=== PATIENT | male | born 1980 | race American Indian/Alaskan Native ===

== ENCOUNTER 2016-08-27 14:09 | Emergency (ER) | payer OTHER ==
[2016-08-27 14:24] VITALS: TEMP 98.1; O2SAT 100
[2016-08-27 14:34] VITALS: BMI 27.8
[2016-08-27] MEDS ORDERED: Fosphenytoin 1,000 MG in Sodium Chloride 0.9% 50 ML IV STA (14:38)
--- NOTE | 2016-08-27 14:47 | ED PDOC ---
Arrival/HPI - General Time Seen by Provider: 08/27/16 14:19 Historian: Patient - History of Present Illness Narrative History of Present Illness (Text): 08/27/16 14:43 36 year old male whose past medical history includes seizure disorder, noncompliant with Dilantin, presents to the emergency department s/p seizure today. 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 He reports he began to feel left sided tingling which he states is his prodrome before a seizure. He states he then sat down and had a seizure. Patient states he left work and when he got home he had another generalized tonoclonic seizure. He reports that during this seizure he hit his head on the floor. Currently he reports mild headache. Patient reports last seizure was over a year ago. He states he has not followed up with his neurologist in over a year. Patient states this seizure could be due to lack of sleep from recent work schedule. Denies hx of alcohol withdrawal seizures. Denies regular alcohol use. No fever, cough, chest pain, shortness of breath, abdominal pain, nausea, vomiting, or dysuria. Time/Duration: Prior to Arrival Symptom Onset: Sudden Symptom Course: Resolved Modifying Factors (Text): None Associated Symptoms (Text): None Past Medical History - Provider Review Nursing Documentation Reviewed: Yes Family/Social History - Physician Review Nursing Documentation Reviewed: Yes Family/Social History: Unknown Family HX Allergies/Home Meds Allergies/Adverse Reactions: Allergies No Known Allergies Allergy (Verified 08/27/16 14:35) Review of Systems - Review of Systems Constitutional: absent: Fevers Eyes: absent: Vision Changes ENT: absent: Hearing Changes Respiratory: absent: SOB, Cough Cardiovascular: absent: Chest Pain, Palpitations Gastrointestinal: absent: Abdominal Pain, Nausea, Vomiting Genitourinary Male: absent: Dysuria Musculoskeletal: absent: Back Pain Skin: absent: Rash Neurological: Headache (mild), Seizure Hemo/Lymphatic: absent: Easy Bleeding Psychiatric: absent: Depression Physical Exam Vital Signs Reviewed: Yes Vital Signs Temp Pulse Resp BP Pulse Ox 08/27/16 14:23 98.1 F 91 H 16 125/73 100 08/27/16 14:10 98.1 F 82 18 125/73 100 Temperature: Afebrile Blood Pressure: Normal Pulse: Regular Respiratory Rate: Normal Appearance: Positive for: Well-Appearing, Non-Toxic, Comfortable Pain Distress: None Mental Status: Positive for: Alert and Oriented X 3 Finger Stick Blood Glucose: 127 - Systems Exam Head: Present: Atraumatic, Normocephalic Pupils: Present: PERRL Extroacular Muscles: Present: EOMI Conjunctiva: Present: Normal Mouth: Present: Moist Mucous Membranes Neck: Present: Normal Range of Motion Respiratory/Chest: Present: Clear to Auscultation, Good Air Exchange. No: Respiratory Distress, Accessory Muscle Use Cardiovascular: Present: Regular Rate and Rhythm, Normal S1, S2. No: Murmurs Abdomen: Present: Normal Bowel Sounds. No: Tenderness, Distention, Peritoneal Signs Back: Present: Normal Inspection Upper Extremity: Present: Normal Inspection, Normal ROM, NORMAL PULSES. No: Cyanosis, Edema Lower Extremity: Present: Normal Inspection, NORMAL PULSES, Normal ROM. No: Edema Neurological: Present: GCS=15, CN II-XII Intact, Speech Normal, Motor Func Grossly Intact, Normal Sensory Function Skin: Present: Warm, Dry, Normal Color. No: Rashes Psychiatric: Present: Alert, Oriented x 3, Normal Insight, Normal Concentration Medical Decision Making ED Course and Treatment: Impression: 36 year old male with a past medical history that includes seizure disorder, noncompliant with Dilantin presents to the emergency department s/p seizure today. Seizure likely due to medication non-compliance but r/o infection or electrolyte abnormality. Differential Diagnosis include but are not limited to: Plan: -- CT Head r/o ICH due to head trauma during seizure. -- Dilantin -- Labs -- Reassess and disposition Progress Notes: 08/27/16 17:06 EKG shows NSR at [address] changes, QTc 467, and no ST elevations. Interpreted by me. CT head negative for acute injury. Cxray negative. UA negative. Patient was loaded with dilantin. P:labs 08/27/16 17:40 Labs grossly normal. Electrolytes WNL. Counselled on the importance of not driving or operating heavy machinery and taking dilantin as well as following up with neurology. Patient AAox3 and ambulated out of ER with girlfriend. - Lab Interpretations Lab Results: 08/27/16 17:00 08/27/16 17:00 Lab Results 08/27/16 17:00: WBC 9.6, RBC 4.83, Hgb 13.3 L, Hct 38.9 L, MCV 80.5, MCH 27.5, MCHC 34.2, RDW 13.6, Plt Count 214, MPV 9.9, Gran % 80.6 H, Lymph % (Auto) 14.0 L, [place] % (Auto) 4.9, Eos % (Auto) 0.4 L, Baso % (Auto) 0.1, Gran # 7.71 H, Lymph # 1.3, [place] # 0.5, Eos # 0.0, Baso # 0.01, Sodium 138, Potassium 4.1, Chloride 99, Carbon Dioxide 30, Anion Gap 13, BUN 10, Creatinine 0.9, Est GFR ( Amer) > 60, Est GFR (Non-Af Amer) > 60, Random Glucose 108, Calcium 9.4 , Phosphorus 2.8, Magnesium 1.9, Total Bilirubin 1.0, AST 40, ALT 27, Alkaline Phosphatase 78, Total Protein 8.3, Albumin 4.4, Globulin 3.8, Albumin/Globulin Ratio 1.2 08/27/16 15:50: Urine Color Yellow, Urine Appearance Clear, Urine pH 6.0, Ur Specific [place] >= 1.030, Urine Protein Trace H, Urine Glucose (UA) Negative, Urine Ketones Trace H, Urine Blood Negative, Urine Nitrate Negative, Urine Bilirubin Negative, Urine Urobilinogen 0.2, Ur Leukocyte Esterase Negative, Urine RBC Negative, Urine WBC 0 - 2, Ur Epithelial Cells 0 - 2, Urine Bacteria Trace 08/27/16 14:29: POC Glucose (mg/dL) 127 H - RAD Interpretation Radiology Orders: 08/27/16 14:37 HEAD W/O CONTRAST [CT] Stat 08/27/16 14:38 CHEST PORTABLE [RAD] Stat - EKG Interpretation Interpreted by ED Physician: Yes Type: 12 lead EKG - Medication Orders Current Medication Orders: Discontinued Medications Acetaminophen (Tylenol 325mg Tab) 975 mg PO STAT STA Stop: 08/27/16 14:39 Last Admin: 08/27/16 14:49 Dose: 975 MG MAR Pain/Vitals Document 08/27/16 14:49 OCS (Rec: 08/27/16 14:53 OCS [id number]) Pain Reassessment Is This A Pain ReAssessment? Yes Sleep Is patient sleeping during reassessment? No Presence of Pain Presence of Pain Yes Pain Scale Used Pain Scale Used Numeric Location Pain Location Body Cane Flume Watchman Description Throbbing Intensity 10 Scale Used Numeric Pain Behavior Guarding Fosphenytoin Sodium 1,000 mg/ (Sodium Chloride) 70 mls @ 100 mls/hr IV STAT STA Stop: 08/27/16 15:19 Last Admin: 08/27/16 15:07 Dose: 100 MLS/HR eMAR Start Stop Document 08/27/16 15:07 OCS (Rec: 08/27/16 15:07 OCS [id number]) Intravenous Solution Start Date 08/27/16 Start Time 15:07 - Scribe Statement The provider has reviewed the documentation as recorded by the Dominga León Provider Scribe Attestation: All medical record entries made by the Mingibe were at my direction and personally dictated by me. I have reviewed the chart and agree that the record accurately reflects my personal performance of the history, physical exam, medical decision making, and the department course for this patient. I have also personally directed, reviewed, and agree with the discharge instructions and disposition. Disposition/Present on Arrival - Present on Arrival Any Indicators Present on Arrival: No - Disposition Have Diagnosis and Disposition been Completed?: Yes Diagnosis: Seizure Disposition: HOME/ ROUTINE Disposition Time: 17:40 Patient Plan: Discharge Patient Problems: Current Active Problems Problem Status Diagnosed Seizure Acute Condition: GOOD Discharge Instructions (ExitCare): Epilepsy (ED), Recurrent Seizures in Adults (ED) Additional Instructions: No driving or operating heavy machinery until cleared by a neurologist. Follow- up with PMD in 2 days. Follow-up with neurology in 2 days. Take dilantin as prescribed. Return to ED with any worsening symptoms. Avoid lack of sleep that triggers your seizures. Prescriptions: Phenytoin, Extended [Dilantin Kapseals] 100 mg PO TID #90 cer Referrals: Pato Apodaca MD [Primary Care Provider] - Follow up with primary Forms: WORK NOTE
[2016-08-27 15:55] LABS: URINE BILIRUBIN NEGATIVE (NEGATIVE); URINE BLOOD NEGATIVE (NEGATIVE); URINE GLUCOSE (UA) NEGATIVE (NEGATIVE); URINE KETONE TRACE mg/dL (NEGATIVE); URINE LEUKOCYTE ESTERASE NEGATIVE Leu/uL (NEGATIVE); URINE PROTEIN TRACE mg/dL (<30 mg/dL); URINE UROBILINOGEN 0.2 E.U./dL (<1 E.U./dL)
[2016-08-27 15:57] LABS: URINE APPEARANCE CLEAR (CLEAR); URINE COLOR YELLOW (YELLOW)
[2016-08-27 16:05] LABS: URINE BACTERIA TRACE (NEG); URINE EPITHELIAL CELLS 0 - 2 /hpf (0-5); URINE RBC NEGATIVE /hpf (0-2); URINE WBC 0 - 2 /hpf (0-6)
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
--- NOTE | 2016-08-27 16:59 | RAD ---
HISTORY: seizure COMPARISON: No prior. FINDINGS: LUNGS: No active pulmonary disease. PLEURA: No significant pleural effusion identified, no pneumothorax apparent. CARDIOVASCULAR: Normal. OSSEOUS STRUCTURES: No significant abnormalities. VISUALIZED UPPER ABDOMEN: Normal. OTHER FINDINGS: None. IMPRESSION: No active disease.
[2016-08-27 17:11] LABS: ADD MANUAL DIFF? NO
[2016-08-27 17:21] LABS: BASO # 0.01 K/mm3 (0.0-2.0); BASO % 0.1 % (0.0-3.0); EOS % 0.4 % (1.5-5.0); GRAN # 7.71 (1.4-6.5); GRAN % 80.6 % (50.0-68.0); HEMATOCRIT 38.9 % (42.0-52.0); LYMPH # 1.3 (1.2-3.4); MEAN CELL VOLUME 80.5 fL (80.0-105.0); MEAN CORPUSCULAR HEMOGLOBIN 27.5 pg (25.0-35.0); MEAN CORPUSCULAR HGB CONC 34.2 g/dl (31.0-37.0); MEAN PLATELET VOLUME 9.9 fl (7.0-11.0); MONO # 0.5 (0.1-0.6); MONO % 4.9 % (1.0-6.0); PLATELET COUNT 214 10^3/uL (120.0-450.0); RED CELL DISTRIBUTION WIDTH 13.6 % (11.5-14.5); WHITE BLOOD COUNT 9.6 10^3/ul (4.5-11.0)
[2016-08-27 17:30] LABS: ALB/GLOB RATIO 1.2 (1.1-1.8); ALKALINE PHOSPHATASE 78 U/L (38-133); ALT/SGPT 27 U/L (7-56); AST/SGOT 40 U/L (15-59); BLOOD UREA NITROGEN 10 mg/dL (7-21); CALCIUM 9.4 mg/dL (8.4-10.5); CARBON DIOXIDE 30 mmol/L (21-33); CHLORIDE 99 mmol/L (98-107); GFR AFRICAN-AMERICAN > 60; GLUCOSE,RANDOM 108 mg/dL (70-110); MAGNESIUM 1.9 mg/dL (1.7-2.2); PHOSPHOROUS 2.8 mg/dL (2.5-4.5); POTASSIUM 4.1 mmol/L (3.6-5.0); SODIUM 138 mmol/L (132-148); TOTAL PROTEIN 8.3 g/dL (5.8-8.3)
[2016-08-27 19:07] VITALS: BP 129/87; PULSE 69; RESP 18
--- NOTE | 2016-08-28 10:06 | CARD ---
APPROVED REPORT EKG Measurement Heart [id number] <Conclusion> Normal sinus rhythm Nonspecific ST and T wave abnormality Prolonged QT
== END 2016-08-27 18:15 | disposition home or self-care (01) ==
LOC: ED 14:09 → MERGE 14:09 → ED 18:15
DX: R56.9 Unspecified convulsions (principal)
CPT/HCPCS: 70450; 71010; 80053; 81001; 82948; 83735; 84100; 85025; 93005; 96374; 99285; Q2009

== ENCOUNTER 2017-03-12 18:36 | Emergency (ER) | payer MEDICAID, OTHER ==
[2017-03-12 18:36] VITALS: BMI 27.8
[2017-03-12 19:09] VITALS: TEMP 98.5; O2SAT 99
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
[2017-03-12 20:02] LABS: BASO # 0.03 K/mm3 (0.0-2.0); BASO % 0.3 % (0.0-3.0); EOS # 0.2 (0.0-0.7); EOS % 1.7 % (1.5-5.0); GRAN # 5.02 (1.4-6.5); GRAN % 54.4 % (50.0-68.0); HEMATOCRIT 40.4 % (42.0-52.0); LYMPH # 3.4 (1.2-3.4); MEAN CELL VOLUME 82.8 fl (80.0-105.0); MEAN CORPUSCULAR HEMOGLOBIN 27.5 pg (25.0-35.0); MEAN CORPUSCULAR HGB CONC 33.2 g/dl (31.0-37.0); MEAN PLATELET VOLUME 10.7 fl (7.0-11.0); MONO # 0.6 (0.1-0.6); MONO % 6.6 % (1.0-6.0); RED CELL DISTRIBUTION WIDTH 13.9 % (11.5-14.5); WHITE BLOOD COUNT 9.2 10^3/ul (4.5-11.0)
[2017-03-12 20:04] LABS: ALB/GLOB RATIO 1.5 (1.1-1.8); ALKALINE PHOSPHATASE 53 U/L (38-126); ALT/SGPT 24 U/L (7-56); AST/SGOT 44 U/L (17-59); BILIRUBIN,TOTAL 0.7 mg/dL (0.2-1.3); BLOOD UREA NITROGEN 14 mg/dL (7-21); CARBON DIOXIDE 17 mmol/L (21-33); CHLORIDE 102 mmol/L (98-107); GFR AFRICAN-AMERICAN > 60; GLUCOSE,RANDOM 108 mg/dL (70-110); MAGNESIUM 1.7 mg/dL (1.7-2.2); PHOSPHOROUS 2.7 mg/dL (2.5-4.5); SODIUM 139 mmol/L (132-148); TOTAL PROTEIN 7.7 g/dL (5.8-8.3)
[2017-03-12 20:05] LABS: POTASSIUM 4.1 mmol/L (3.6-5.0)
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
[2017-03-13] MEDS ORDERED: Phenytoin 250 mg/5 ml Inj IVPB STA (00:12)
[2017-03-13] MEDS ORDERED: Phenytoin 250 mg/5 ml Inj IVP STA (00:12)
[2017-03-13 02:18] VITALS: BP 121/82; PULSE 82; RESP 16
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
--- NOTE | 2017-03-14 08:19 | CARD ---
APPROVED REPORT EKG Measurement Heart [id number] <Conclusion> Normal sinus rhythm NSSTW changes No change
== END 2017-03-13 03:43 | disposition home or self-care (01) ==
LOC: ED 18:36
DX: R56.9 Unspecified convulsions (principal)
CPT/HCPCS: 70450; 73030; 80053; 80185; 82550; 82553; 83735; 84100; 85025; 93005; 96374; 99285; J1165